=== PATIENT | male | born 1950 | race Caucasian/White ===

== ENCOUNTER 2023-04-09 09:18 | Emergency (ER) | payer MEDICARE, OTHER ==
[2023-04-09] MEDS ORDERED: Iopamidol 755 Mg/ML 100 ML Bottle IVPUSH ONE (09:26)
[2023-04-09] MEDS ORDERED: Sodium Chloride 0.9% 10 ML Syringe FLUSH PRN ×2 (09:26→09:27)
[2023-04-09 09:51] LABS: BASOPHILS PERCENT AUTO 0.1 % (0.0-1.0); HEMATOCRIT 32.4 % (42.0-52.0); HEMOGLOBIN 10.6 gm/dl (14.0-18.0); IMMATURE GRAN ABSOLUTE AUTO 0.05 K/mm3 (0.00-0.05); IMMATURE GRAN PERCENT AUTO 0.7 % (0.0-0.4); LYMPHOCYTES ABSOLUTE AUTO 0.4 K/mm3 (1.0-4.8); LYMPHOCYTES PERCENT AUTO 5.3 % (24.0-44.0); MEAN CORPUSCULAR HEMOGLOBIN 29.4 pg (28.0-32.0); MEAN CORPUSCULAR HGB CONC 32.7 g/dl (32.0-36.0); MONOCYTES ABSOLUTE AUTO 0.7 K/mm3 (0.0-0.8); MONOCYTES PERCENT AUTO 10.3 % (0.0-8.0); NEUTROPHILS PERCENT AUTO 83.6 % (41.0-71.0); PLATELET COUNT,PLT 188 K/mm3 (150-400); WHITE BLOOD CELL COUNT,WBC 7.16 K/mm3 (3.9-11.3)
[2023-04-09 10:18] LABS: A/G RATIO 0.7 (1-2); ALBUMIN 2.9 g/dl (3.4-5.0); ANION GAP 20.3 (5-15); BILIRUBIN TOTAL 0.5 mg/dL (0.2-1.0); BUN/CREATININE RATIO 14.6 (14-18); CALCIUM 9.2 mg/dL (8.5-10.1); CREATININE 5.2 mg/dL (0.7-1.3); EST CRCL DRUG DOSING (CG) 13.88 mL/min; MAGNESIUM 2.4 mg/dL (1.8-2.4); POTASSIUM,K 5.3 mEq/L (3.5-5.1); PROTEIN TOTAL,TP 7.2 g/dl (6.4-8.2)
[2023-04-09 10:29] LABS: APPEARANCE,URINE CLOUDY (Clear); BILIRUBIN,URINE NEGATIVE (Negative); COLOR,URINE YELLOW (Yellow); GLUCOSE,URINE NEGATIVE (Negative); KETONES,URINE NEGATIVE (Negative); LEUKOCYTE ESTERASE,URINE NEGATIVE (Negative); NITRITE,URINE NEGATIVE (Negative); OCCULT BLOOD,URINE NEGATIVE (Negative); PH,URINE 5.5 (5.0-8.0); PROTEIN,URINE 1+ (Negative); UROBILINOGEN,URINE 0.2 (0.2-1.0)
[2023-04-09 10:36] LABS: BARBITURATE SCREEN,URINE NEGATIVE (CUTOFF=200); BENZODIAZEPINES SCREEN,URINE NEGATIVE (CUTOFF=150); BUPRENORPHINE SCREEN,URINE NEGATIVE (CUTOFF=10); METHADONE SCREEN, URINE NEGATIVE (CUT0FF=200); METHAMPHETAMINES SCREEN, URINE NEGATIVE (CUTOFF=500); OXYCODONE SCREEN,URINE NEGATIVE (CUT0FF=100); THC SCREEN,URINE 20 NG/ML NEGATIVE (CUTOFF=50)
[2023-04-09 10:42] LABS: AMPHETAMINES SCREEN, URINE NEGATIVE (CUTOFF=500)
[2023-04-09 10:58] LABS: CORONAVIRUS COVID-19 NAA NEGATIVE (NEGATIVE); INFLUENZA A NAA NEGATIVE (NEGATIVE); RESPIRATORY SYNCYTIAL VIR NAA NEGATIVE (NEGATIVE)
[2023-04-09 11:31] LABS: BACTERIA,URINE MODERATE /hpf (FEW); COARSE GRANULAR CASTS,URINE 20-30 /hpf (0-5); FINE GRANULAR CASTS,URINE 30-40 /lpf (0-5); HYALINE CASTS,URINE 75-100 /lpf (0-5); MUCUS,URINE FEW /hpf (FEW); SQUAMOUS EPITHELIAL CELLS,UR NOT SEEN /hpf (0-5); WBC CASTS,URINE 0-5 /lpf (0-5); WBC CLUMPS,URINE FEW /hpf (NOT SEEN)
[2023-04-09] MEDS ORDERED: Lactulose Soln 10 GM/15 ML 30 ML UD Cup PO SCH (13:30)
[2023-04-09 14:14] LABS: LACTIC ACID 2.6 mmol/L (0.4-2.0)
[2023-04-09] MEDS ORDERED: Lactulose Soln 10 GM/15 ML 30 ML UD Cup ONE (15:01)
[2023-04-09] MEDS ORDERED: Benzocaine 20% Topical Spray UD MUCMEM ONE (15:28)
[2023-04-09] MEDS ORDERED: Lactulose Soln 10 GM/15 ML 30 ML UD Cup NGTUBE ONE (15:48)
[2023-04-09 18:35] LABS: COLOR,CSF COLORLESS; TUBE NUMBER,CSF 2; TUBE VOLUME,CSF 2 ml
[2023-04-09 18:36] LABS: APPEARANCE CSF CLEAR (CLEAR); SUPERNATANT APPEAR,CSF NO XANTHOCHROMIA; WBC,CSF 1 cells/uL (0-5)
[2023-04-09 19:35] LABS: POLYMORPHONUCLEAR, CSF 100 % (2-4)
[2023-04-12 20:22] LABS: RBC,CSF 736 cells/uL (0-0)
== END 2023-04-09 16:40 ==
LOC: JD.ED 09:18
DX: G92.8 Other toxic encephalopathy (principal); E72.20 Disorder of urea cycle metabolism, unspecified; N18.5 Chronic kidney disease, stage 5; R79.89 Other specified abnormal findings of blood chemistry; Z20.822 Contact with and (suspected) exposure to COVID-19
CPT/HCPCS: 0241U; 36415; 43752; 70450; 70450-26; 70496; 70496-26; 70498; 70498-26; 71045; 71045-26; 80053; 80306; 80307; 81001; 82140; 82947; 83605; 83735; 84157; 85025; 87040; 87070; 87205; 89050; 93005; 93010; 99284; 99285-25; A9270-GY; C1758; J3490; Q9967